=== PATIENT | male | born 1940 ===

== ENCOUNTER 2017-09-14 08:45 | Outpatient (CLI) | payer OTHER ==
[~2017-09-14 08:45] MED LIST: ANTIVERT PO; LOSARTAN-HCTZ1 EAC1 PO; NABUMETONE500 MG PO; NEURONTIN800 MG PO; NORVASC2.5 M1 PO; PERCOCET 5/3251 TAB PO; RESTORIL30 M1 PO; SYNTH PO; TRAMADOL HCL50 MG PO
== END 2017-09-14 10:03 | disposition home or self-care (01) ==
LOC: TOM 08:45
DX: K25.9 Gastric ulcer, unspecified as acute or chronic, without hemorrhage or perforation (principal)
CPT/HCPCS: 74178; Q9965

== ENCOUNTER 2018-04-10 08:51 | Outpatient (CLI) | payer OTHER | END 2018-04-10 08:54 | disposition home or self-care (01) | LOC: RAD 08:51 → SONOGRAMA 08:51 → RAD 08:54 | DX: M54.5 Low back pain (principal); M25.551 Pain in right hip | CPT/HCPCS: 72148 ==

== ENCOUNTER 2018-07-09 08:37 | Outpatient (CLI) | payer OTHER | END 2018-07-09 10:00 | disposition home or self-care (01) | LOC: TOM 08:37 | DX: C16.8 Malignant neoplasm of overlapping sites of stomach (principal) | CPT/HCPCS: 74177; Q9965 ==

== ENCOUNTER 2018-12-21 08:11 | Outpatient (CLI) | payer OTHER | END 2018-12-21 08:14 | disposition home or self-care (01) | LOC: TOM 08:11 | DX: C16.8 Malignant neoplasm of overlapping sites of stomach (principal) | CPT/HCPCS: 74177; Q9965 ==

== ENCOUNTER → 2019-07-04 | Outpatient (CLI) | payer OTHER | END | disposition home or self-care (01) | LOC: TOM 07-03 08:30 | DX: C16.8 Malignant neoplasm of overlapping sites of stomach (principal) | CPT/HCPCS: 74160; Q9965 ==

== ENCOUNTER 2019-12-19 07:13 | Outpatient (CLI) | payer OTHER | END 2019-12-19 07:17 | disposition home or self-care (01) | LOC: TOM 07:13 | PROVIDERS: ATTEND Surgery Surgical Oncology | DX: C16.8 Malignant neoplasm of overlapping sites of stomach (principal) | CPT/HCPCS: 74160; Q9965 ==

== ENCOUNTER 2020-06-08 11:23 | Emergency (ER) | payer OTHER ==
[~2020-06-08] VITALS: Ht 172.7 cm; Wt 62.1 kg
[2020-06-08] MEDS ORDERED: ALLEGRA ALLERG180 MG (12:03)
== END 2020-06-08 15:40 | disposition home or self-care (01) ==
LOC: ER 11:23
DX: B34.9 Viral infection, unspecified (principal); Z03.818 Encounter for observation for suspected exposure to other biological agents ruled out

== ENCOUNTER 2021-09-24 09:31 | Outpatient (CLI) | payer OTHER ==
[~2021-09-24 09:31] MED LIST changes: +ALLEGRA ALLERG180 MG
== END 2021-09-24 09:41 | disposition home or self-care (01) ==
LOC: TOM 09:31
PROVIDERS: ATTEND Internal Medicine Cardiovascular Disease
DX: J98.4 Other disorders of lung (principal); R06.02 Shortness of breath; J43.9 Emphysema, unspecified
CPT/HCPCS: 71270; Q9965

== ENCOUNTER 2021-10-04 08:06 | Outpatient (CLI) | payer OTHER | END 2021-10-04 08:07 | disposition home or self-care (01) | LOC: NUCLEAR 08:06 | PROVIDERS: ATTEND Internal Medicine Cardiovascular Disease | DX: R07.89 Other chest pain (principal) | CPT/HCPCS: 78452; 93017; A9500 ==

== ENCOUNTER → 2021-11-03 | Emergency (ER) | payer OTHER ==
[~2021-11-03] VITALS: Ht 172.7 cm; Wt 49.9 kg
== END | disposition left against medical advice (07) ==
LOC: ER 12:01
DX: R07.9 Chest pain, unspecified (principal)